=== PATIENT | female | born 1940 | race Caucasian/White ===

== ENCOUNTER 2019-06-12 21:03 | Emergency (ER) | payer MEDICARE, OTHER ==
[~2019-06-12] VITALS: Ht 162.6 cm; Wt 68.0 kg
[2019-06-12 21:10] VITALS: BP 132/61
--- NOTE | 2019-06-12 21:15 | NUR ---
ED Nurse Note: Patient walked into ED from home s/p mechanical fall 1 hour prior to arrival to ED. patient reports she tripped and fell on a curb and landed on the left side. patient denies any head trauma. patient is alert awake x4 ambulatory breathing unlabored and even, speaking in full sentences.
--- NOTE | 2019-06-12 21:38 | Emergency Room Report ---
History of Present Illness General Chief Complaint: Multiple Trauma/Fall Source: Patient Present Illness HPI Patient is a 78-year-old female who presented after recent fall. Patient had injury approximately 1 1/2 hours prior to arrival. She denies loss of consciousness. She denies other locations of pain other than the left side of her chest and abdomen. Patient reports having some prior history of hypothyroidism. She denies taking any anticoagulations. She denies taking her head. She denies any neck or back pain. She been ambulatory after the fall. Allergies: Coded Allergies: No Known Allergies (Unverified , 06/12/19) Patient History Past Medical History: see triage record Reviewed Nursing Documentation: PMH: Agreed; PSxH: Agreed Nursing Documentation-PMH Past Medical History: No Stated History Review of Systems All Other Systems: negative except mentioned in HPI Physical Exam Vital Signs Date Time Temp Pulse Resp B/P (MAP) Pulse Ox O2 Delivery O2 Flow Rate FiO2 06/12/19 21:10 97.5 66 16 132/61 (84) 97 Room Air Sp02 EP Interpretation: reviewed, normal General Appearance: normal inspection, well appearing, no apparent distress, alert, GCS 15 Head: atraumatic ENT: normal ENT inspection, hearing grossly normal, normal voice Neck: normal inspection, full range of motion, supple, no bony tend Respiratory: normal breath sounds, no respiratory distress, no retraction, no wheezing, other - left chest wall tenderness Cardiovascular #1: regular rate, rhythm, no edema Gastrointestinal: normal inspection, normal bowel sounds, non tender, soft, no guarding, no hernia Genitourinary: no CVA tenderness Musculoskeletal: normal inspection, back normal, normal range of motion Neurologic: normal inspection, alert, responsive, dog or animal sitter III-XII nml as tested, speech normal Psychiatric: normal inspection, judgement/insight normal, mood/affect normal Medical Decision Making Diagnostic Impression: Primary Impression: Fall Additional Impression: Chest wall contusion ER Course She presented after a fall. Differential diagnosis include was not limited to contusion, rib fracture, intracranial injury among others. Because of complexity of patient's case imaging studies were ordered. Patient was noted to have some significant discomfort to the left chest wall. She was given pain medications. CT imaging of the chest was ordered.CT of chest read by radiology showed fibrotic changes to the base of the lungs as well as liver calcification , there is no pleural effusions noted. Patient was noted to have degenerative changes to the spine without evident fracture. There is no definite rib fracture noted per radiology report however given the patient's discomfort there may be some unrecognized fracture. Patient given prescription for pain medications. She was advised to follow-up with her primary care physician for recheck. She is advised to return if worse. EKG Diagnostic Results Rate: bradycardiac Rhythm: NSR ST Segments: no acute changes Last Vital Signs Date Time Temp Pulse Resp B/P (MAP) Pulse Ox O2 Delivery O2 Flow Rate FiO2 06/12/19 21:10 97.5 66 16 132/61 (84) 97 Room Air Status: improved Disposition: HOME, SELF-CARE Condition: Stable Scripts Docusate Sodium* (COLACE*) 100 Mg Capsule 100 MG ORAL TWICE A DAY, #20 CAP Prov: Jalen Anthony MD 06/12/19 Hydrocodone Bit/Acetaminophen 5-325* (NORCO 5-325*) 1 Each Tablet 1 TAB ORAL Q6H PRN for For Pain, #20 TAB 0 Refills Prov: Jalen Anthony MD 06/12/19 Jalen Anthony MD Jun 12, 2019 21:38
--- NOTE | 2019-06-12 21:44 | NUR ---
ED Nurse Note: patient taken to CT scan in wheelchair.
[2019-06-12] MEDS ORDERED: HYDROcodone/Acetamin 5/325 tab ORAL ONE (21:45)
--- NOTE | 2019-06-12 22:00 | NUR ---
ED Nurse Note: patient came back from CT scan.
--- NOTE | 2019-06-12 22:51 | Diagnostic Imaging Report ---
Clinical Indication: Chest pain, status post fall Technique: Spiral acquisitions obtained through the chest. No IV contrast utilized, reason not stated. Multiplanar reconstructions generated. Total dose length product 993 mGycm. CTDIvol(s) 21 mGy. Dose reduction achieved using automated exposure control Comparison: none Findings: No acute fractures. No evidence of significant soft tissue contusion demonstrated. Lungs demonstrate bilateral lower lobe groundglass opacities. There is a pleural-based nodule along the minor fissure which measures 4 mm in diameter, image 39 series 9. There is a subpleural 4 mm nodule in the anterolateral right middle lobe, image 48 series 9 no infiltrates, effusions, or masses. The heart size is is normal. There is trace pericardial thickening versus fluid. No substernal hematoma. No mediastinal or hilar mass or adenopathy. The thyroid is unremarkable. Esophagus is unremarkable. No axillary or chest wall mass or adenopathy. The included upper abdomen demonstrates a subcentimeter low-attenuation lesion within segment 8 of the liver. There is a calcified granuloma in the dome of the liver. There is a large cyst in the left kidney Impression: No evidence of fracture, pneumothorax, or significant soft tissue injury Basilar groundglass opacities, nonspecific, could represent atelectatic changes, COPD changes, or mild pulmonary edema, among other possibilities Trace pericardial thickening versus fluid Incidental findings of probable right lobe liver cyst, left renal cyst, old granulomatous disease within the liver The above findings are essentially agrees with the [facility] preliminary report provided overnight Subpleural right lung nodules, as described. No further follow-up necessary there is no significant smoking history or other risk factors for lung carcinoma. If there are significant risk factors, then follow-up CT at 6-12 months should be considered. This finding was discussed by phone with Dr. Keen at the time of interpretation The CT scanner at [facility] is accredited by the [employer] and the scans are performed using protocols designed to limit radiation exposure to as low as reasonably achievable to attain images of sufficient resolution adequate for diagnostic evaluation.
[2019-06-12] MEDS ORDERED: NORCO 5-325 TA1 EACH ORAL (22:58)
[2019-06-12] MEDS ORDERED: COLACE100 MG ORAL (22:58)
[2019-06-12 23:07] VITALS: BP 132/61
--- NOTE | 2019-06-12 23:07 | NUR ---
ER DISCHARGE NOTE: Patient is cleared to be discharged per ERMD DR GODDARD, pt is aox4, on room air, with stable vital signs. pt was given dc and prescription instructions, pt was able to verbalize understanding, pt id band removed without complications. pt is able to ambulate with steady gait. pt took all belongings.
--- NOTE | 2019-06-13 12:19 | Emergency Room Report ---
Physical Exam Vital Signs Date Time Temp Pulse Resp B/P (MAP) Pulse Ox O2 Delivery O2 Flow Rate FiO2 06/12/19 21:10 97.5 66 16 132/61 (84) 97 Room Air Medical Decision Making PA Attestation All my diagnosis and treatment plans were reviewed ad discussed with my supervising physician Dr. Keen Diagnostic Impression: Primary Impression: Fall Additional Impression: Chest wall contusion ER Course I discussed the findings of nodule and pleural bases of lungs with patient over the phone today at 12:15PM. I advised the patient to follow-up with primary care provider as well as a knitting teacher for further assessment. Patient agrees with the above recommendation Last Vital Signs Date Time Temp Pulse Resp B/P (MAP) Pulse Ox O2 Delivery O2 Flow Rate FiO2 06/12/19 23:07 97.6 82 16 132/61 97 Room Air Disposition: HOME, SELF-CARE Condition: Stable Scripts Docusate Sodium* (COLACE*) 100 Mg Capsule 100 MG ORAL TWICE A DAY, #20 CAP Prov: Jalen Anthony MD 06/12/19 Hydrocodone Bit/Acetaminophen 5-325* (NORCO 5-325*) 1 Each Tablet 1 TAB ORAL Q6H PRN for For Pain, #20 TAB 0 Refills Prov: Jalen Anthony MD 06/12/19 Referrals: NON PHYSICIAN (PCP) Patient Instructions: Chest Wall Pain, Rnyo-[id number], Rib Fracture Rivas Clark Jun 13, 2019 12:19
== END 2019-06-12 23:10 | disposition home or self-care (01) ==
LOC: EMR 21:48
DX: S20.212A Contusion of left front wall of thorax, initial encounter (principal); E03.9 Hypothyroidism, unspecified; W18.30XA Fall on same level, unspecified, initial encounter; Y92.9 Unspecified place or not applicable
CPT/HCPCS: 71250; 93005; 99284